=== PATIENT | female | born 1985 | race African-American/Black ===

== ENCOUNTER 2016-10-24 13:03 | Emergency (ER) | payer SELFPAY ==
[~2016-10-24] VITALS: Ht 154.9 cm; Wt 95.3 kg
[2016-10-24 13:20] VITALS: BP 158/83
[2016-10-24 14:00] LABS: BASO # 0.1 x10^3/uL (0.0-0.2); BASO % 1 % (0-3); EOS % 1 % (0-3); HEMATOCRIT 43.6 % (36.0-47.0); HEMOGLOBIN 14.9 g/dL (12.0-15.5); LYMPH # 3.2 x10^3/uL (1.0-4.8); LYMPH % 23 % (24-48); MEAN CORPUSCULAR HEMOGLOBIN 30 pg (25-35); MEAN CORPUSCULAR HGB CONC 34 g/dL (31-37); MEAN CORPUSCULAR VOLUME 87 fL (79-100); MONO % 9 % (0-9); NEUT % 66 % (31-73); PLATELET COUNT 359 x10^3/uL (140-400); RED BLOOD COUNT 5.03 x10^6/uL (3.50-5.40); RED CELL DISTRIBUTION WIDTH 15.8 % (11.5-14.5); WHITE BLOOD COUNT 13.5 x10^3/uL (4.0-11.0)
[2016-10-24] MEDS ORDERED: IOHEXOL 300 MG/ML 75 ML VIAL IV ONE (14:00)
[2016-10-24 14:18] LABS: CALCIUM 9.4 mg/dL (8.5-10.1); CREATININE 0.7 mg/dL (0.6-1.0); GFR 118.1; POTASSIUM 3.8 mmol/L (3.5-5.1)
[2016-10-24 14:19] LABS: NEG OBC SER NEG; POS OBC SER POS
[2016-10-24 14:25] LABS: ALBUMIN 3.8 g/dL (3.4-5.0); ALBUMIN/GLOBULIN RATIO 0.8 (1.0-1.7); TOTAL BILIRUBIN 0.6 mg/dL (0.2-1.0); TOTAL PROTEIN 8.6 g/dL (6.4-8.2)
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
[2016-10-24] MEDS ORDERED: ONDA4TAB10 PO (15:09)
[2016-10-24] MEDS ORDERED: HYDR-971 PO (15:09)
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
[2016-10-29 15:13] LABS: POTASSIUM ISTAT 3.6 mmol/L (3.5-5.0)
== END 2016-10-24 15:15 | disposition home or self-care (01) ==
LOC: ER 13:03
DX: R10.84 Generalized abdominal pain (principal); I10 Essential (primary) hypertension; K08.409 Partial loss of teeth, unspecified cause, unspecified class; Z88.0 Allergy status to penicillin
CPT/HCPCS: 36415; 74177; 80047; 80053; 81025; 83690; 84703; 85027; 99285; Q9967

== ENCOUNTER 2017-04-04 13:12 | Emergency (ER) | payer SELFPAY ==
[~2017-04-04] VITALS: Ht 154.9 cm; Wt 92.1 kg
[~2017-04-04 13:12] MED LIST: HYDR-971 PO; ONDA4TAB10 PO
[2017-04-04 13:24] VITALS: BP 123/82
[2017-04-04] MEDS ORDERED: CYCL10TA2 PO (13:42)
--- NOTE | 2017-04-04 13:43 | PHYS DOC ---
Past Medical History Past Medical History: Hypertension Past Surgical History: Other Additional Past Surgical Histo: Dental Alcohol Use: None Drug Use: None Adult General Chief Complaint Chief Complaint: LOWER BACK PAIN OR INJURY HPI HPI Patient is a 31 year old female presents to the emergency department stating that she hurt her lower back less than when she was at work. 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 She denies any loss of bowel or bladder. She states that her legs feel weak bilaterally. She denies any radiation of pain and discomfort. Patient denies any previous history of back pain or discomfort. Patient states she has been taking ibuprofen 600 mg with some relief of pain. Review of Systems Review of Systems Constitutional: Denies fever or chills [] Eyes: Denies change in visual acuity, redness, or eye pain [] HENT: Denies nasal congestion or sore throat [] Respiratory: Denies cough or shortness of breath [] Cardiovascular: No additional information not addressed in HPI [] GI: Denies abdominal pain, nausea, vomiting, bloody stools or diarrhea [] : Denies dysuria or hematuria [] Musculoskeletal: c/o lower back pain denies joint pain Integument: Denies rash or skin lesions [] Neurologic: Denies headache, focal weakness or sensory changes [] Endocrine: Denies polyuria or polydipsia [] All other systems were reviewed and found to be within normal limits, except as documented in this note. Allergies Allergies Allergies Coded Allergies Type Severity Reaction Last Updated Verified Penicillins Allergy Unknown 10/24/16 Yes Physical Exam Physical Exam Constitutional: Well developed, well nourished, no acute distress, non-toxic appearance. [] HENT: Normocephalic, atraumatic, bilateral external ears normal, oropharynx moist, no oral exudates, nose normal. [] Eyes: PERRLA, EOMI, conjunctiva normal, no discharge. [] Neck: Normal range of motion, no tenderness, supple, no stridor. [] Cardiovascular:Heart rate regular rhythm, no murmur [] Lungs & Thorax: Bilateral breath sounds clear to auscultation [] Abdomen: Bowel sounds normal, soft, no tenderness, no masses, no pulsatile masses. [] Skin: Warm, dry, no erythema, no rash. [] Back: lower back tenderness across the lower back Extremities: No tenderness, no cyanosis, no clubbing, ROM intact, no edema. Peripheral pulses 2+ cap refill < 2 seconds. Patient noted to have increase discomfort with leg raises. Neurologic: Alert and oriented X 3, normal motor function, normal sensory function, no focal deficits noted. [] Psychologic: Affect normal, judgement normal, mood normal. [] Current Patient Data Vital Signs Vital Signs Date Time Temp Pulse Resp B/P (MAP) Pulse Ox O2 Delivery O2 Flow Rate FiO2 04/04/17 13:24 97.6 101 18 99 Room Air 97.6 EKG EKG [] Radiology/Procedures Radiology/Procedures [] Course & Med Decision Making Course & Med Decision Making Pertinent Labs and Imaging studies reviewed. (See chart for details) Patient was encouraged to take her ibuprofen 600 mg every 8 hours with food taken developed an upset stomach. Patient was also provided with a Flexeril prescription. She was instructed this medication will cause drowsiness do not take any be alert and oriented. Recommended ice packs on 20 minutes off 20 minutes several times a day. Recommended that she follow up with her work comp doctor within the next week if she continues to have pain and discomfort. Signs and symptoms to return back to emergency department has been provided. All questions and concerns of been answered at the patients bedside. []I've spoken with the patient and/or caregivers. I've explained the patient's condition, diagnosis and treatment plan based on information available to me at this time. I've answered the patient's and/or caregivers questions and addressed any concerns. The patient and/or caregivers have a good understanding the patient's diagnosis, condition and treatment plan as can be expected at this point. Vital signs have been stabilized. The patient's condition is stable for discharge from the emergency department. The patient will pursue further outpatient evaluation with her primary care provider or other designated consulting physician as outlined in the discharge instructions. Patient and/or caregivers are agreeable to this plan of care and follow-up instructions have been explained in detail. The patient and/or caregivers have received these instructions in written format and expressed understanding of these discharge instructions. The patient and her caregivers are aware that if any significant change in condition or worsening of symptoms should prompt him to immediately return to this of the closest emergency department. If an emergent department is not readily available I would encourage him to call 911. Moe Disclaimer Moe Disclaimer This electronic medical record was generated, in whole or in part, using a voice recognition dictation system. Departure Departure Impression: Primary Impression: Back pain Disposition: 01 HOME, SELF-CARE Condition: STABLE Referrals: LEONEL RIVERS MD (PCP) Patient Instructions: Back Pain, Adult, [id number] Additional Instructions: Activity as tolerated. Ibuprofen 600 mg every 8 hours with food stuck take if he developed an upset stomach. Flexeril will cause drowsiness do not take any be alert and oriented. Ice packs on 20 minutes off 20 minutes several times a day. Follow-up with her work comp doctor within the next week. Return back to the emergency department for signs and symptoms become worse. Scripts Cyclobenzaprine Hcl (CYCLOBENZAPRINE HCL) 10 Mg Tablet 1 TAB PO TID Y for MUSCLE SPASMS, #30 TAB Prov: GORDON ISAACS WOOL SORTER 04/04/17 Problem Qualifiers Primary Impression: Back pain Back pain location: back pain in unspecified location Chronicity: unspecified Back pain laterality: unspecified Qualified Codes: M54.9 - Dorsalgia, unspecified GORDON ISAACS WOOL SORTER Apr 04, 2017 13:43
== END 2017-04-04 13:48 | disposition home or self-care (01) ==
LOC: ER 13:12
DX: M54.5 Low back pain (principal); R53.1 Weakness; I10 Essential (primary) hypertension; Z88.0 Allergy status to penicillin
CPT/HCPCS: 99283